=== PATIENT | male | born 1980 | race Caucasian/White ===

== ENCOUNTER → 2016-12-14 | Outpatient (CLI) | payer OTHER ==
[~2016-12-14] MED LIST: DOXY100C76 PO; GADAVIST IV PRN; KETO10TA PO; OXYC-57 PO
--- NOTE | 2016-12-14 09:52 | DIAGNOSTIC IMAGING REPORT ---
ORBIT RADIOGRAPHS 3 VIEWS HISTORY: pre-MRI screening. COMPARISON: None. FINDINGS: There are no radiopaque foreign bodies identified within the orbits. IMPRESSION: No radiopaque foreign bodies identified within the orbits. Electronically signed by: Abrahan Stanley M.D. 12/14/2016 9:51 AM Dictated Date/Time: 12/14/2016 9:51 AM
--- NOTE | 2016-12-14 10:30 | DIAGNOSTIC IMAGING REPORT ---
FLUOROSCOPIC GUIDED RIGHT SHOULDER ARTHROGRAM FLUOROSCOPY TIME: 17 seconds. HISTORY: Right shoulder pain.. PROCEDURE: After obtaining written informed consent, the patient was placed supine on the fluoroscopy table. A suitable site for needle insertion was marked using fluoroscopic guidance. The right shoulder was prepped and draped in the usual sterile fashion. 1% lidocaine was used for skin, subcutaneous and deep soft tissue anesthesia. ' Under intermittent fluoroscopic guidance, a 22 gauge 2.5 inch spinal needle was inserted into the right glenohumeral joint. A total of 14 cc of one-to-one mixture of dilute Magnevist (0.1 cc in 10 cc saline) and Optiray 300 were injected. The needle was then removed. There were no apparent complications. The patient was transported to for further imaging. IMPRESSION: Fluoroscopic-guided right shoulder arthrogram without immediate complication. Total injected volume was 14 cc. MR portion of the examination will be dictated separately. Electronically signed by: Maico Carr 12/14/2016 10:29 AM Dictated Date/Time: 12/14/2016 10:28 AM
--- NOTE | 2016-12-14 11:59 | DIAGNOSTIC IMAGING REPORT ---
RIGHT UPPER EXTREMITY JOINT W/ HISTORY: RIGHT SHOULDER PAIN Right COMPARISON: Right shoulder radiographs 12/04/2016. TECHNIQUE: Multiplanar, multi sequence MRI of the right shoulder was performed following the intra-articular administration of solution containing 0.1 mL Magnevist. FINDINGS: Some of the series are mildly motion degraded, notably the coronal T1 fat saturation. ROTATOR CUFF: There is a large full-thickness tear of the supraspinatus tendon involving the anterior mid and posterior fibers measuring approximately 2.5 x 1.9 cm in transverse and AP dimension respectively. There may be a few fibers of the posterior tendon which are intact. Retracted fibers are seen 7 mm lateral to the superior glenoid. The redundant and torn supraspinatal tendon fibers demonstrate extensive increased T2 signal compatible with background tendinopathy. No associated muscle atrophy or significant muscle edema. Intermediate grade partial-thickness articular sided tearing from the large supraspinatus tear extends into the conjoined fibers of the infraspinatus tendon as seen on image 11 of the coronal series. There is moderate infraspinatus tendinosis. Teres minor is intact. Subscapularis appears intact. BICEPS TENDON: The longhead biceps tendon is intact. No evidence of tendinosis. The biceps jeramie and anchor are intact. LABRUM: Tear of the labrum extending anterior to posterior is seen nicely on images 10 through 12 of the coronal series. No displaced fragment or large labral cyst. No extension into the bicipital anchor. GLENOHUMERAL JOINT: The articular cartilage overlying the glenoid fossa is normal. There is no loose body or debris present within the glenohumeral joint. There is minimal subcortical cystic change of the rotator cuff footplate of the greater tuberosity. ACROMIOCLAVICULAR JOINT: There is mild to moderate osteoarthritis with marginal spurring and capsular hypertrophy. The acromion has a flat undersurface. There is trace subacromial/subdeltoid bursitis. OUTLET SPACES: The suprascapular notch and quadrilateral space are without obstructing or space occupying lesions. BONE MARROW: No focal abnormality, fracture or marrow occupying lesion. SOFT TISSUES: The periarticular soft tissues are unremarkable. IMPRESSION: 1. Large full-thickness tear of the anterior and mid supraspinatus tendon with tear extending into the conjoined fibers of the infraspinatus tendon where there is a moderate grade partial thickness articular sided tear. There is considerable retraction of the supraspinatus tendon tear without muscle atrophy. 2. SLAP tear without extension into the bicipital anchor. 3. Mild to moderate osteoarthritis of the acromioclavicular joint. Electronically signed by: Maico Carr 12/14/2016 11:58 AM Dictated Date/Time: 12/14/2016 11:43 AM
--- NOTE | 2016-12-14 12:01 | Discharge Instructions ---
Discharge Instructions Procedure Procedure Date: Dec 14, 2016. Reason for visit: Right Shoulder Pain. Discharge Discharge Date: Dec 14, 2016. Discharge Diagnosis: Right shoulder pain. Status post shoulder arthrogram for MRI. Instructions Activity Recommendations: No limitations Return to School/Work: no limitations Recommended Home Diet: No Limitations, Resume Previous Diet Allergies Coded Allergies: No Known Allergies (Verified , ., 11/15/14) Gerber Oliver Recommendations: Call your doctor if: * Temperature above 101 degrees * Pain not relieved by pain medicine ordered * There is increased drainage or redness from any incision * You have any unanswered questions or concerns. Your Doctors Instructions noted above were prepared by provider Lokesh Carr. Patient Signature Section: Patient Instructions Signature Page Robbie Levy Patient (or Guardian) Signature/Date: I have read and understand the instructions given to me by my caregivers. Caregiver/RN/Doctor Signature/Date: The above-named patient and/or guardian has received patient instructions on this date. + Original Patient Signature Page (only) stays with chart. Please make copy for patient.
== END | disposition home or self-care (01) ==
LOC: C.RADBC 09:26
PROVIDERS: ATTEND Orthopaedic Surgery
DX: M25.511 Pain in right shoulder (principal)

== ENCOUNTER → 2017-02-11 | Day surgery (SDC) | payer OTHER ==
[2016-12-24 12:51] VITALS: BMI 31.0
[2017-01-28 09:00] VITALS: Ht 170.2 cm; Wt 90.9 kg
[~2017-02-11] VITALS: Ht 170.2 cm; Wt 90.9 kg
[~2017-02-11] MED LIST changes: +ATROPINE SULFATE 0.1 MG/ML 5ML SYR IV PRN; +BUPIVACAINE/EPINEPHRINE 0.25% 1:200,000 30 ML VIAL ONE; +CEFAZOLIN 2000 MG/60 ML D5W IV SCH; +DEXAMETHASONE SOD INJ 4 MG/ML VIAL ONE; -DOXY100C76 PO; +EpHEDrine SULFATE INJ 50 MG/ML AMP IV PRN; +EpHEDrine SULFATE INJ 50 MG/ML AMP ONE; +EpINEphrine INJ 1MG/ML AMP 1 MG/ML AMP ONE; +FENTANYL CITRATE INJ 50 MCG/1 ML 2 ML VIAL IV PRN; +FENTANYL CITRATE INJ 50 MCG/1 ML 2 ML VIAL ONE; -GADAVIST IV PRN; +LACTATED RINGER'S 1000ML 1,000 ML IV SCH; +LIDOCAINE HCL 2% 2 ML VIAL (20MG/ML) ONE; +MIDAZOLAM HCL 1 MG/ML 2ML VIAL ONE; +NURSING VERBAL MED ORDER ONE; +ONDANSETRON INJ 2 MG/ML 2 ML VIAL IV PRN; +ONDANSETRON INJ 2 MG/ML 2 ML VIAL ONE; +OXYCODONE/ACETAMINOPHEN 5-325 TAB PO PRN; +PROMETHAZINE HCL INJ 12.5 MG in SODIUM CHLORIDE 0.9% 50ML 50 ML IV PRN; +PROPOFOL IV EMULSION 10 MG/ML 20 ML VIAL IV ONE; +ROPIVACAINE 0.5% 5 MG/ML 30 ML VIAL ONE; +SODIUM CHLORIDE 0.9% 1000ML 1,000 ML IV SCH
--- NOTE | 2017-02-11 08:02 | History & Physical Bridge - [place] ---
H&P Re-Evaluation Bridge Note: I have examined the patient, reviewed the History & Physical and in the interval since the performance of the History & Physical I have noted the following changes of clinical significance: No changes noted
--- NOTE | 2017-02-11 15:41 | [facility] Post Operative Brief Note ---
Immediate Operative Summary Operative Date Feb 11, 2017. Pre-Operative Diagnosis Right Shoulder Rotator Cuff Tear Post-Operative Diagnosis Same Procedure(s) Performed Right Shoulder Arthroscopy, Acromioplasty, Rotator Cuff Repair, Open Biceps Tenodesis Surgeon Dr Guillory Pantry Worker Surgeon(s) Geraldo Thornton PA-C Estimated Blood Loss 10cc Findings as above Specimens None Complication(s) None Disposition Recovery Room / PACU
--- NOTE | 2017-02-11 15:43 | Discharge Instructions-SurgCtr ---
Discharge Instructions Date of Service Feb 11, 2017. Visit Reason for Visit: Right Rotator Cuff Tear, Shoulder Pain Discharge Discharge Diagnosis / Problem: SAME ABOVE Discharge Goals Goal(s): Decrease discomfort, Improve function Activity Recommendations Activity Limitations: as noted below Lifting Limitations: until after follow-up appointment Exercise/Sports Limitations: until after follow-up appointment Shower/Bathe: tomorrow Driving or Machine Use: NOT UNTIL SEEN FOR FOLLOW-UP Anesthesia . Post Anesthesia Instructions: If you have had General Anesthesia or IV Sedation: * Do not drive today. * Resume driving when surgeon permits. * Do not make important decisions or sign legal documents today. * Call surgeon for: 1. Temperature elevations greater than 101 degrees F. 2. Uncontrollable pain. 3. Excessive bleeding. 4. Persistent nausea and vomiting. 5. Medication intolerance (nausea, vomiting or rash). * For nausea and vomiting use only clear liquids such as: tea, soda, bouillon until nausea subsides, then gradually increase diet as tolerated. * If you have any concerns or questions, call your surgeon's office. If physician is unavailable and it is an emergency, call 911 or go to the nearest emergency room. . Instructions / Follow-Up Instructions / Follow-Up MEDICATIONS: * Resume previous medications unless instructed otherwise by your surgeon. * Always take pain medication on a full stomach or with food to avoid upset stomach. * Do not drink alcohol or drive while taking narcotics. * Ibuprofen or Tylenol may be taken if narcotic not needed. SPECIAL CARE INSTRUCTIONS: __ None _X_ Keep extremity elevated and iced x 48 hours; apply ice 20-30 minutes 8-10 times/day. May remove at night. __ Sling __24 hrs/day __ Remove at night _X_ Shoulder Immobilizer (MAY REMOVE AFTER 48 HOURS ONLY FOR THERAPY AND TO SHOWER) _X_ 24 hrs/day __ Remove at night _X_ Dressing __ Maintain until seen in office, may shower with plastic over site _X_ Remove dressings in 24-48 hours and then may shower _X_ Cover incisions with band-aids after showering _X_ Do not remove steri-strips (THEY MAY FALL OFF ON THEIR OWN) Call physician if chills or temperature rises above 102 degrees or pain unrelieved by prescribed pain medications at . . Diet Recommendations Home Diet: no limitations Fluid Restriction: None Procedures Procedures Performed: Right Shoulder Arthroscopy, Acromioplasty, Rotator Cuff Repair, Open Biceps Tenodesis Pending Studies Studies pending at discharge: no Work Instructions Return To Work: after follow-up Lifting Limitations: NO LIFTING WITH RIGHT ARM Medical Emergencies . Who to Call and When: Medical Emergencies: If at any time you feel your situation is an emergency, please call 911 immediately. . Non-Emergent Contact Non-Emergency issues call your: Primary Care Provider Call Non-Emergent contact if: you have a fever, temperature is above 101.5 . . "Provider Documentation" section prepared by Errol Thornton. .
--- NOTE | 2017-02-11 16:33 | Anesthesia Progress Nt - [facility] ---
Anesthesia Post Op Note Date & Time Feb 11, 2017 at 16:33 Vital Signs Pain Intensity: 0 Vital Signs Past 12 Hours Date Time Temp Pulse Resp B/P (MAP) Pulse Ox O2 Delivery O2 Flow Rate FiO2 02/11/17 16:20 36.2 65 16 136/89 (105) 97 Room Air 02/11/17 16:12 36.4 69 16 116/81 96 Room Air 02/11/17 16:08 75 10 02/11/17 16:08 76 10 97 02/11/17 16:06 127/86 02/11/17 16:03 69 16 136/85 96 02/11/17 16:03 69 16 02/11/17 16:01 139/121 02/11/17 15:58 75 16 99 02/11/17 15:58 73 16 02/11/17 15:56 144/83 02/11/17 15:53 66 16 98 02/11/17 15:53 67 16 02/11/17 15:52 138/83 02/11/17 15:48 73 17 02/11/17 15:48 74 17 99 02/11/17 15:46 130/81 02/11/17 15:43 62 17 02/11/17 15:43 61 17 99 02/11/17 15:41 128/78 02/11/17 15:38 13 02/11/17 15:38 70 13 137/79 02/11/17 15:37 36.3 81 16 137/79 100 Mask 8 02/11/17 13:18 0 02/11/17 13:17 0 02/11/17 13:12 65 19 100 02/11/17 13:12 64 02/11/17 13:11 126/100 02/11/17 13:07 57 02/11/17 13:07 58 0 97 02/11/17 13:02 62 02/11/17 13:02 63 0 97 02/11/17 12:57 76 0 97 02/11/17 12:57 75 02/11/17 12:52 57 02/11/17 12:52 55 0 96 02/11/17 12:47 65 02/11/17 12:47 63 0 94 02/11/17 12:42 58 02/11/17 12:42 55 0 98 02/11/17 12:37 61 02/11/17 12:37 61 97 02/11/17 12:03 36.5 75 16 146/84 (104) 97 Room Air Notes Mental Status: alert / awake / arousable, participated in evaluation Pt Amnestic to Procedure: Yes Nausea / Vomiting: adequately controlled Pain: adequately controlled Airway Patency, RR, SpO2: stable & adequate BP & HR: stable & adequate Hydration State: stable & adequate Anesthetic Complications: no major complications apparent
[2017-02-11 16:40] VITALS: BP 130/85; PULSE 67; TEMP 36.4; O2SAT 97
--- NOTE | 2017-02-11 17:45 | OPERATIVE REPORT ---
DATE OF OPERATION: 02/11/2017 PREOPERATIVE DIAGNOSIS: Large anterior superior right rotator cuff tear. POSTOPERATIVE DIAGNOSIS: Same. PROCEDURE: Right shoulder diagnostic arthroscopy with extensive debridement, acromioplasty, large rotator cuff repair involving the entire supraspinatus and subscapularis and open subpectoral biceps tenodesis. SURGEON: Dr. Liam Guillory. MARKETING CLERK: Geraldo Thornton PA-C, whose assistance was necessary for positioning the arm and helping with instrumentation. ANESTHESIA: General with a right interscalene nerve block. COMPLICATIONS: None. CONDITION: Stable to PACU. This case took increased time with increased difficulty given the size of the tear. It was a large anterior superior cuff tear in a young individual that was over 6 months out. Significant time had to be spent freeing up the cuff tendons. Time was also spent not only repairing the subscapularis, but the supraspinatus as well. This case took almost twice as long as a standard rotator cuff repair given the size of the tear, the number of tendons to repair and the difficulty. 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 About 6 months ago, he injured his right shoulder. He presented to my office and MRI and clinical examination were diagnostic for a large anterior superior cuff tear. After failing conservative treatment, he elected to undergo arthroscopy. DESCRIPTION OF PROCEDURE: On 02/11/2017, he arrived at [facility] for the above procedure. He was seen in the preoperative holding area and the operative extremity was identified and signed. He was given a preoperative antibiotic and a right interscalene nerve block. He was taken back to the operating room, laid on the table in supine position and put under general anesthesia. He was then put into the beachchair position. The right shoulder was prepped and draped in sterile fashion. Time-out was done and the patient and operative extremity was properly identified. A scope was introduced in the posterior portal. Diagnostic arthroscopy showed no cartilage damage to the humeral head or the glenoid. There was a little fraying of the labrum. There was a tear of the superior half of the subscapularis and a tear of the entire supraspinatus. The tear also went up the rotator interval and the supraspinatus was retracted back to the level of the glenoid. An anterior portal was made. A shaver was used to do a debridement of the intraarticular structures. Time was spent freeing up the entire subscapularis. The biceps tendon was arthroscopically tenotomized for later tenodesis. A scope was then put into the subacromial space. A lateral portal was made. A shaver was used to do a complete subacromial and subdeltoid bursectomy. An ablator was used to tease the coracoacromial ligament off the undersurface of the acromion and a 5-0 river was used to complete an acromioplasty of a Bigliani type 2 acromion. A shaver was used to remove any excess debris and attention was turned to the rotator cuff. Time was spent freeing up all the margins of the rotator cuff. Significant time was spent debriding around the subscapularis and around the coracoid. Once the tendons were appropriately freed up, an additional anterolateral portal was made and Hiral cannulas were placed in each of the lateral portals. The lesser tuberosity and the greater tuberosity were prepared with a ring curette and microfracture. The subscapularis was then fixed with a modified SpeedBridge configuration using a single medial row of 4.75-mm BioComposite SwiveLock suture anchor loaded with 2 FiberTapes. The tapes were passed through the tendon at the anticipated articular margin. The tapes were then brought down to a lateral row SwiveLock suture anchor. Attention was then turned to the supraspinatus. A tag stitch was placed. The supraspinatus was then fixed with an Arthrex SpeedBridge configuration using 2 medial row 4.75-mm BioComposite SwiveLock suture anchors and FiberTapes. The tapes were passed through the tendon at the anticipated articular margin and the tapes were brought down to 1 of 2 lateral row SwiveLock suture anchors. This gave a nice knotless SpeedBridge repair. The remaining stay sutures were tied across anchor to each other to hold down the medial row. The FiberLink stay suture on the anterior aspect of the supraspinatus was incorporated into the anterior lateral anchor of the subscapularis repair. This gave a nice anatomic repair. Multiple pictures were taken. The scope was put back into the glenohumeral joint and the articular margin of both rotator cuff tendons had been restored. Arthroscopic instrument was removed from the shoulder. Attention was turned to an open biceps tenodesis. A small incision was made over the inferior border of the pec major. Dissection was taken down through the fascia and the long head of the biceps tendon was delivered out of the wound. The tendon was then whipstitched with a FiberLoop suture at the anticipated level of tenodesis. A 6-mm hole was drilled in the bicipital groove and the biceps tendon was tenodesed with an Arthrex biceps button that was passed through the posterior cortex in a tension slide technique to deliver the tendon into the 6-mm hole. This gave good fixation. The wound was then irrigated and closed with 3-0 Vicryl and running 3-0 Monocryl. Steri-strips were placed. Portal sites were closed with 3-0 nylon. He was then placed in a soft dressing and an abduction arm sling. He was then extubated, transferred to a [facility] and taken to the postanesthesia care unit in stable condition. He tolerated the procedure well. I attest to the content of the Intraoperative Record and any orders documented therein. Any exception s are noted below.
== END | disposition home or self-care (01) ==
LOC: X.SURG 11:01
PROVIDERS: ATTEND Orthopaedic Surgery
DX: S46.011A Strain of muscle(s) and tendon(s) of the rotator cuff of right shoulder, initial encounter (principal); W11.XXXA Fall on and from ladder, initial encounter; Z82.49 Family history of ischemic heart disease and other diseases of the circulatory system; Z83.3 Family history of diabetes mellitus; Z80.3 Family history of malignant neoplasm of breast; Z80.42 Family history of malignant neoplasm of prostate; G47.33 Obstructive sleep apnea (adult) (pediatric); Z86.19 Personal history of other infectious and parasitic diseases

== ENCOUNTER 2018-01-02 20:33 | Emergency (ER) | payer OTHER ==
[~2018-01-02] VITALS: Ht 170.2 cm; Wt 91.0 kg
[2018-01-02 20:35] VITALS: TEMP 36.6; Ht 170.2 cm; Wt 91.0 kg
--- NOTE | 2018-01-02 20:47 | EMERGENCY ROOM VISIT NOTE ---
History Report prepared by Jackieibgabriela: Allen Donahue Under the Supervision of: Dr. Nik Sim M.D. First contact with patient: 20:38 Chief Complaint: HEAD INJURY (MINOR) Stated Complaint: S/P FALL,HEAD LACERATION History of Present Illness The patient is a 37 year old male who presents to the Emergency Room with complaints of a closed head injury and laceration that occurred within the last hour while he was riding a skateboard within the last hour. Patient states he lost consciousness during the incident and "just remembers going down pretty hard" on the back of his head. Patient states his family witnessed the fall. Patient denies wearing a helmet. Past medical history includes concussions from playing football. He denies neck pain. Patient denies taking any blood thinners or other medications. Source of History: patient Onset: Within the last hour Position: head Quality: other (Laceration) Timing: constant Modifying Factors (Relieving): other (None) Associated Symptoms: + LOC, No neck pain Review of Systems See HPI for pertinent positives and negatives. A total of ten systems were reviewed and were otherwise negative. Past Medical & Surgical Medical Problems: (1) Concussion Family History Cancer Diabetes mellitus Heart disease Hypertension Social History Smoking Status: Never Smoker Marital Status: Housing Status: lives with family Current/Historical Medications No Active Prescriptions or Reported Meds Allergies Coded Allergies: No Known Allergies (Verified , ., 02/11/17) Physical Exam Vital Signs Date Time Temp Pulse Resp B/P (MAP) Pulse Ox O2 Delivery O2 Flow Rate FiO2 01/02/18 21:44 71 18 136/83 98 01/02/18 20:35 36.6 78 18 154/89 98 Room Air Physical Exam Physical Exam GENERAL: He appears well-developed and well-nourished. He does not appear distressed. HENT: Exam performed. Head: 2cm laceration in the occipital area otherwise normocephalic. Right Ear: External ear normal. No mastoid tenderness. Left Ear: External ear normal. No mastoid tenderness. Mouth/Throat: The oropharynx is clear and moist. No trismus in the jaw. No dental abscesses or uvula swelling. No oropharyngeal exudate or tonsillar abscesses. EYES: Conjunctivae and EOM are normal. Pupils are equal, round, and reactive to light. Right eye exhibits no discharge. Left eye exhibits no discharge. No scleral icterus. NECK: Normal range of motion. Neck supple. No JVD present. No spinous process tenderness present. No carotid bruit present. No rigidity. No tracheal deviation and normal range of motion present. No Brudzinski's sign and no Kernig 's sign noted. CV: Normal rate, regular rhythm, normal heart sounds and intact distal pulses. There is no peripheral edema. Palpable radial pulses bue. PULM/CHEST: Effort normal and breath sounds normal. No respiratory distress. No stridor. He has no wheezes. He has no rales. Chest Wall: He exhibits no tenderness. ABD: The abdomen is soft. Bowel sounds are normal. He has no distension. No mass is present. There is no tenderness. There is no rebound, no guarding, no Barahona's sign and no tenderness at McBurney's point. Rovsig negative. MUSC/SKEL: Normal range of motion. There is no peripheral edema, tenderness or deformity. LYMPH: No cervical adenopathy. NEURO: He has normal strength. No cranial nerve deficit or sensory deficit. Coordination and gait normal. GCS eye subscore is 4. GCS verbal subscore is 5. GCS motor subscore is 6. Cerebellar tests wnl. SKIN: Skin is warm and dry. He is not diaphoretic. PSYCH: He has a normal mood and affect. Behavior is normal. Judgment and thought content normal. Medical Decision & Procedures ER Provider Diagnostic Interpretation: Radiology results as stated below per my review and radiologist interpretation: HEAD WITHOUT CONTRAST (CT) CT DOSE: 601.98 mGy.cm HISTORY: Trauma fall whle skate boarding + LOC r/o epidural TECHNIQUE: Multiaxial CT images of the head were performed without the use of intravenous contrast. A dose lowering technique was utilized adhering to the principles of ALARA. Comparison: None. Findings: The paranasal sinuses and mastoid air cells are clear. The calvarium and skull base are intact. The ventricles and sulci are within normal limits. There is no mass, hematoma, midline shift, or acute infarct. Impression: No acute intracranial abnormality. The above report was generated using voice recognition software. It may contain grammatical, syntax or spelling errors. Electronically signed by: Ibrahima Norris M.D. 01/02/2018 8:55 PM Medications Administered Medications (Trade) Dose Ordered Sig/Jane Route Start Time Stop Time Status Last Admin Dose Admin Ondansetron HCl (Zofran Odt) 4 mg ONE ONCE PO 01/02/18 21:15 01/02/18 21:16 DC 01/02/18 21:11 4 MG Procedure Location: [place] Total length: 2cm Complexity: Simple Verbal consent was obtained after the risks and benefits were explained, including but not limited to bleeding, scarring, infection, pain, and bone/joint /nerve damage. At this time, the risks of the procedure are less than the risks of NOT performing the procedure. A time out was taken and the correct patient and site identified. The target area was anesthetized with 4 ml of 1% lidocaine with epinephrine. Copious irrigation was performed using normal saline. The wound was explored for foreign bodies one rock was removed. Examination revealed no injury to deep structures such as tendons, bone, or significant blood vessels. Debridement was not performed. The wound edges were approximated using 3 daija. Hemostasis and excellent approximation was achieved. Antibacterial ointment and a sterile dressing applied. Detailed wound care instructions and signs and symptoms of infection reviewed with the him. No complications and the patient tolerated the procedure well. ED Course 2034: The patient was evaluated in room C6. A complete history and physical exam was performed. 2114: Lidocaine/Epinephrine 10ml INFIL and Zofran Odt 4mg PO 2144: Patient's vital signs are stable. CT scan within normal limits showing no acute injury. See procedure note for wound care. Patient was informed to follow- up with concussion protocol and PCP following discharge. will drive the patient home. DISCHARGE - Plan of care discussed with patient and questions answered. The patient was given both verbal and printed discharge instructions. The patient verbalized understanding and ability to comply. The patient is to seek outpatient follow up as noted in the discharge instructions. The patient verbalized understanding and ability to comply. The patient is discharged in stable condition. The patient was instructed to return for worsening symptoms. Medical Decision vital signs are stable. CT scan within normal limits showing no acute injury. See procedure note for wound care. Patient was informed to follow-up with concussion protocol and PCP following discharge. will drive the patient home. DISCHARGE - Plan of care discussed with patient and questions answered. The patient was given both verbal and printed discharge instructions. The patient verbalized understanding and ability to comply. The patient is to seek outpatient follow up as noted in the discharge instructions. The patient verbalized understanding and ability to comply. The patient is discharged in stable condition. The patient was instructed to return for worsening symptoms. Medication Reconcilliation Current Medication List: was personally reviewed by me Blood Pressure Screening Patient's blood pressure: Normal blood pressure Blood pressure disposition: Did not require urgent referral Impression Primary Impression: Concussion Scribe Attestation The scribe's documentation has been prepared under my direction and personally reviewed by me in its entirety. I confirm that the note above accurately reflects all work, treatment, procedures, and medical decision making performed by me. The chart was completed utilizing [employer] voice recognition software. Grammatical errors, random word insertions, pronoun errors, and incomplete sentences are an occasional consequence of this system due to software limitations, ambient noise, and hardware issues. Any formal questions or concerns about the content, text, or information contained within the body of this dictation should be directly addressed to the physician for clarification. Departure Information Dispostion Home / Self-Care Prescriptions No Active Prescriptions or Reported Meds Referrals Nilda Crum MD (PCP) Forms HOME CARE DOCUMENTATION FORM, IMPORTANT VISIT INFORMATION Patient Instructions Concussion Hi, My [facility] Additional Instructions Contact [facility] concussion clinic for follow-up appointment. At [address] [facility] Telephone [phone]. Problem Qualifiers Primary Impression: Concussion Encounter type: initial encounter Loss of consciousness presence/duration: with LOC of 30 min or less Qualified Codes: S06.0X1A - Concussion with loss of consciousness of 30 minutes or less, initial encounter
[2018-01-02] MEDS ORDERED: LORAZEPAM 2 MG/ML 1 ML VIAL ONE (20:52)
--- NOTE | 2018-01-02 20:57 | DIAGNOSTIC IMAGING REPORT ---
HEAD WITHOUT CONTRAST (CT) CT DOSE: 601.98 mGy.cm HISTORY: Trauma fall whle skate boarding + LOC r/o epidural TECHNIQUE: Multiaxial CT images of the head were performed without the use of intravenous contrast. A dose lowering technique was utilized adhering to the principles of ALARA. Comparison: None. Findings: The paranasal sinuses and mastoid air cells are clear. The calvarium and skull base are intact. The ventricles and sulci are within normal limits. There is no mass, hematoma, midline shift, or acute infarct. Impression: No acute intracranial abnormality. The above report was generated using voice recognition software. It may contain grammatical, syntax or spelling errors. Electronically signed by: Ibrahima Norris M.D. 01/02/2018 8:55 PM Dictated Date/Time: 01/02/2018 8:55 PM
[2018-01-02] MEDS ORDERED: LIDOCAINE/EPINEPHRINE 1% 20 ML VIAL INFIL ONE (21:15)
[2018-01-02] MEDS ORDERED: ONDANSETRON 4MG OD TAB PO ONE (21:15)
[2018-01-02 21:44] VITALS: BP 136/83; PULSE 71; O2SAT 98
== END 2018-01-02 21:45 | disposition home or self-care (01) ==
LOC: C.EDB 20:35 → C.EDC 21:45
DX: S01.91XA Laceration without foreign body of unspecified part of head, initial encounter (principal); S06.0X9A Concussion with loss of consciousness of unspecified duration, initial encounter; V00.131A Fall from skateboard, initial encounter